=== PATIENT | male | born 1960 | race Caucasian/White ===

== ENCOUNTER 2021-01-09 13:36 | Outpatient (CLI) | payer OTHER, SELFPAY ==
--- NOTE | ~2021-01-09 | XR_ITS ---
XR knee LT min 4V DATE: 01/09/2021 14:24 INDICATION: Weak right dorsalis pedis pulse. TECHNIQUE: [place] and standing AP, PA and lateral views COMPARISON: None FINDINGS: No fracture or dislocation, periosteal reaction or bone destruction, radiopaque intra-artic ular loose body, chondrocalcinosis or significant joint effusion is evident. Joint spaces appear rela tively preserved. IMPRESSION: No significant abnormality Reviewed, dictated and finalized at location B. IMPRESSION: No significant abnormality
--- NOTE | ~2021-01-09 | XR_ITS ---
XR chest 2V DATE: 01/09/2021 14:24 INDICATION: Smoking. TECHNIQUE: PA and lateral views COMPARISON: None FINDINGS: Mild elevation of the left leaf of the diaphragm. Normal heart size. No hilar or mediastinal enlargement. No pulmonary infiltrate or consolidation, ple ural effusion or pulmonary vascular congestion or pneumothorax. Degenerative changes of the thoracic and upper lumbar spine. IMPRESSION: No active cardiopulmonary disease Reviewed, dictated and finalized at location B.
[2021-01-09 14:09] LABS: Hematocrit 53.5 % (42.0-52.0); Hemoglobin 17.6 g/dL (14.0-18.0); Mean Corpuscular HGB Conc 32.9 g/dl (32-36); Mean Corpuscular Hemoglobin 31.8 pg (26-34); Mean Corpuscular Volume 96.6 fl (80-100); Mean Platelet Volume 9.8 fl (7.4-10.4); Platelet Count Result 237 k/mm3 (150-375); Red Blood Count 5.54 M/mm3 (4.6-6.20); Red Cell Distribution Width 13.2 % (11.5-14.5); White Blood Count 7.8 K/mm3 (4.5-10.0)
[2021-01-09 14:19] LABS: Add Urine Microscopic? YES; Appearance Urine Clear (Clear); Bilirubin Urine Negative (Negative); Blood Urine 1+ (Negative); Color Urine Yellow (Yellow); Glucose Urine UA Negative (Negative); Ketones Urine Negative (Negative); Leukocyte Esterase Ur Negative LEU/UL (NEGATIVE); Nitrate Urine Negative (Negative); Protein Urine Negative (Negative); Specific Grav Ur 1.021 (1.001-1.035); Squamous Epithelial Cell Urine Rare /hpf (Few); Urobilinogen Urine Negative mg/dL (<2.0); WBC Urine 0-3 /hpf (0-3)
[2021-01-09 16:08] LABS: Free T4 Free Thyroxine 0.88 ng/mL (0.78-2.19); Vitamin D 25 Hydroxy 19.3 ng/mL
[2021-01-09 21:23] LABS: Hemoglobin A1C 5.3 % (<5.7)
[2021-01-10 13:46] LABS: Alanine Aminotransferase 23 U/L (4-50); Albumin Level 4.5 g/dL (3.5-5.1); Alkaline Phosphatase 101 U/L (38-126); Anion Gap 7 mmol/L (8-16); Aspartate Amino Transferase 42 U/L (17-59); Bilirubin,Total 0.6 mg/dL (0.2-1.3); Blood Urea Nitrogen 14 mg/dL (9-20); Carbon Dioxide 29 mmol/L (22-30); Chloride 105 mmol/L (98-107); Cholesterol 203 mg/dL (0-200); Estimated Glomerular Filt Rate > 60; Glucose 97 mg/dL (75-110); HDL Direct 52 mg/dL; Potassium 4.6 mmol/L (3.4-5.0); Sodium 141 mmol/L (137-145); Triglycerides 141 mg/dL (<150)
[2021-01-10 13:59] LABS: LDL Cholesterol Direct 123 mg/dL
[2021-01-10 14:20] LABS: Prostate Specific Antigen 4.1 ng/mL (< OR = 4.0)
== END 2021-01-09 13:37 | disposition home or self-care (01) ==
PROVIDERS: PCP Emergency Medicine; Visit Provider Emergency Medicine
DX: I86.1 Scrotal varices (principal); R03.0 Elevated blood-pressure reading, without diagnosis of hypertension; Z00.00 Encounter for general adult medical examination without abnormal findings; M25.561 Pain in right knee
CPT/HCPCS: 36415; 71046; 73564; 80053; 80061; 81001; 82306; 82565; 83036; 84153; 84439; 84443; 85027

== ENCOUNTER 2021-01-16 13:36 | Outpatient (CLI) | payer OTHER, SELFPAY ==
--- NOTE | ~2021-01-16 | CT_ITS ---
EXAMINATION: CT lung screening DATE: 01/16/2021 14:15 INDICATION: Personal history of tobacco dependence. TECHNIQUE: Computed tomography (CT) of the chest was performed without intravenous contrast. The dose -length product was 102.05 mGy-cm. Automated exposure control and iterative reconstruction technique were employed. COMPARISON: Chest x-ray dated 01/09/2021 FINDINGS: There is emphysema. There is levoscoliosis of the thoracic spine. No pneumothorax. No endob ronchial lesions. There are a few small subpleural nodules measuring 2 mm or less bilaterally. No pne umothorax. No thoracic lymphadenopathy. There is atherosclerosis of the coronary arteries. There are gallstones. There is a liver cyst right hepatic lobe. IMPRESSION: 1. Lung-RADS category 2: Benign appearance or behavior. Continue annual screening with noncontrast lo w-dose chest CT in 12 months. Reviewed, dictated and finalized at location A. IMPRESSION: 1. Lung-RADS category 2: Benign appearance or behavior. Continue annual screeni ng with noncontrast low-dose chest CT in 12 months.
--- NOTE | ~2021-01-16 | US_ITS ---
US scrotum doppler INDICATION: History of varicoceles TECHNIQUE: Testicular sonogram utilizing grayscale and color Doppler FINDINGS: The testes are normal in size and appearance. No focal lesions are seen. The right testes measures 4.2 x 2 x 3 cm centimeters, and the left testis measures 3.8 x 1.9 x 2.6 cm cm. There is nor mal vascular flow to both testes. There is a left epididymal cyst. There are bilateral varicoceles. IMPRESSION: 1. Bilateral varicoceles. Reviewed, dictated and finalized at location A. IMPRESSION: 1. Bilateral varicoceles.
== END 2021-01-16 13:37 | disposition home or self-care (01) ==
LOC: ANHIMG 13:43
PROVIDERS: PCP Emergency Medicine; Visit Provider Emergency Medicine
DX: Z12.2 Encounter for screening for malignant neoplasm of respiratory organs (principal); F17.210 Nicotine dependence, cigarettes, uncomplicated; I86.1 Scrotal varices; R09.89 Other specified symptoms and signs involving the circulatory and respiratory systems
CPT/HCPCS: 71271; 76870; 93976

== ENCOUNTER 2021-03-30 10:53 | Outpatient (CLI) | payer OTHER, SELFPAY ==
--- NOTE | ~2021-03-30 | XR_ITS ---
EXAMINATION: XR chest 2V DATE: 03/30/2021 11:17 INDICATION: Cough and fever TECHNIQUE: PA and lateral views of the chest are obtained. COMPARISON: 01/09/2021 FINDINGS: Airspace opacities have developed in the right upper lobe. There is no pleural effusion or pneumothorax. The cardiomediastinal silhouette is normal. There is moderate thoracic spondylosis. IMPRESSION: 1. Right upper lobe airspace opacities consistent with pneumonia. Reviewed, dictated and finalized at location A.
== END 2021-03-30 10:54 | disposition home or self-care (01) ==
PROVIDERS: PCP Emergency Medicine; Visit Provider Emergency Medicine
DX: R91.8 Other nonspecific abnormal finding of lung field (principal); R05 Cough; R50.9 Fever, unspecified
CPT/HCPCS: 71046

== ENCOUNTER → 2021-03-31 00:34 | Outpatient (CLI) | payer OTHER, SELFPAY ==
[2021-03-31 21:52] LABS: SARS-CoV-2 RNA PCR Positive
== END ==
PROVIDERS: PCP Emergency Medicine; Visit Provider Emergency Medicine
DX: U07.1 COVID-19 (principal)
CPT/HCPCS: C9803; U0003; U0005

== ENCOUNTER → 2021-09-17 02:06 | Outpatient (CLI) | payer OTHER, SELFPAY ==
[2021-09-17 13:50] LABS: Influenza A QL RT-PCR Negative (Negative); Influenza B QL RT-PCR Negative (Negative); SARS-CoV-2 RNA PCR Negative
== END ==
PROVIDERS: PCP Internal Medicine; Visit Provider Internal Medicine
DX: R68.89 Other general symptoms and signs (principal); Z20.822 Contact with and (suspected) exposure to COVID-19
CPT/HCPCS: 87502; C9803; U0003; U0005

== ENCOUNTER 2021-09-20 09:12 | Outpatient (CLI) | payer OTHER, SELFPAY ==
--- NOTE | ~2021-09-20 | XR_ITS ---
XR chest 2V 09/20/2021 09:28 Indication: Increased shortness of breath and cough Procedure: 2 view chest Comparison: 03/30/2021 Findings: Heart size normal. No focal air space disease, pulmonary edema, pleural effusion or suspect ed pneumothorax. No acute osseous abnormality. The lungs are hyperinflated which is consistent with, but not diagnostic of chronic obstructive pulmonary disease. Impression: 1: No acute cardiopulmonary disease. Reviewed, dictated and finalized at location B. [employer] Impression: 1: No acute cardiopulmonary disease.
== END 2021-09-20 09:13 | disposition home or self-care (01) ==
LOC: ANHIMG 09:17
PROVIDERS: PCP Internal Medicine; Visit Provider Nurse Practitioner
DX: R06.02 Shortness of breath (principal)
CPT/HCPCS: 71046